=== PATIENT | female | born 1975 | race Two or more races ===

== ENCOUNTER 2020-03-11 08:07 | Outpatient (CLI) | payer OTHER | END 2020-03-11 08:13 | disposition home or self-care (01) | LOC: LAB 08:07 | PROVIDERS: ATTEND Internal Medicine | DX: E03.8 Other specified hypothyroidism (principal); E11.65 Type 2 diabetes mellitus with hyperglycemia; E55.9 Vitamin D deficiency, unspecified; E78.00 Pure hypercholesterolemia, unspecified; D50.0 Iron deficiency anemia secondary to blood loss (chronic); N39.0 Urinary tract infection, site not specified ==

== ENCOUNTER 2020-03-11 09:25 | Outpatient (CLI) | payer OTHER | END 2020-03-11 09:46 | disposition home or self-care (01) | LOC: NUCLEAR 09:25 | PROVIDERS: ATTEND Internal Medicine | DX: I11.9 Hypertensive heart disease without heart failure (principal); I20.8 Other forms of angina pectoris; I87.2 Venous insufficiency (chronic) (peripheral) ==